=== PATIENT | male | born 1955 | race Caucasian/White ===

== ENCOUNTER 2020-03-23 12:09 | Emergency (ER) | payer OTHER ==
[~2020-03-23 12:09] MED LIST: ALL DAY ALLERGY10 M2 PO; ASPIR 8181 MG PO; BETAMETHASONE D50 G1 TP; CEFUROXIME500 MG PO; CLEOCIN HCL300 MG PO; FLOMAX 0.4 MG0.4 MG PO; FLONASE 0.05% N16 GM; LOPRESSOR 25 MG25 MG PO; SINGULAIR10 MG PO; SYMBICORT 160-1 INHA INH; ULTRAM50 MG PO; ZESTRIL2.5 MG PO
[2020-03-23 13:46] LABS: HEMOGLOBIN 15.8 gm/dl (14.0-17.5); RED BLOOD COUNT 5.27 M/UL (4.20-5.50); WHITE BLOOD COUNT 8.4 K/UL (4.5-11.0)
[2020-03-23] MEDS ORDERED: PREDNISONE10 MG PO (17:43)
== END 2020-03-23 18:00 | disposition home or self-care (01) ==
LOC: ER1 12:09
PROVIDERS: Emergency Medicine
DX: D86.9 Sarcoidosis, unspecified (principal); K62.5 Hemorrhage of anus and rectum; R30.0 Dysuria; Z88.2 Allergy status to sulfonamides; Z88.1 Allergy status to other antibiotic agents; Z88.8 Allergy status to other drugs, medicaments and biological substances; Z88.5 Allergy status to narcotic agent
CPT/HCPCS: 80053; 85025; 85610; 86850; 86900; 86901; 93005; 94664; 99283; Q9965; Q9967

== ENCOUNTER → 2020-05-02 | Outpatient (CLI) | payer OTHER ==
[~2020-05-02] MED LIST changes: +DOXYCYCLINE HY100 M2 PO; +FUROSEMIDE20 MG PO; +MACROBID 100 M100 M1 PO; +OMEPRAZOLE20 MG PO; +PREDNISONE10 MG PO; +TRELEGY ELLIPT1 EACH INH; +VITAMIN D325 MCG PO
[2020-05-02 07:38] LABS: HEMOGLOBIN 15.1 gm/dl (14.0-17.5); RED BLOOD COUNT 5.22 M/UL (4.20-5.50)
== END ==
LOC: LAB 07:08
PROVIDERS: Family Medicine
DX: I50.22 Chronic systolic (congestive) heart failure (principal); J44.9 Chronic obstructive pulmonary disease, unspecified; J98.4 Other disorders of lung
CPT/HCPCS: 36415; 71046; 80053; 80061; 85027

== ENCOUNTER → 2020-07-17 | Outpatient (CLI) | payer OTHER ==
[~2020-07-17] MED LIST changes: +LEVOFLOXACIN250 MG PO; +LEVOFLOXACIN500 MG PO; +PREDNISONE 10 M10 MG GT
== END ==
LOC: LAB 14:55
PROVIDERS: Family Medicine
DX: R94.4 Abnormal results of kidney function studies (principal)
CPT/HCPCS: 36415; 80048

== ENCOUNTER → 2020-07-19 | Outpatient (CLI) | payer OTHER | LOC: KOH-I 10:47 | DX: J43.9 Emphysema, unspecified (principal); R04.9 Hemorrhage from respiratory passages, unspecified; D86.9 Sarcoidosis, unspecified; R91.8 Other nonspecific abnormal finding of lung field; R59.0 Localized enlarged lymph nodes | CPT/HCPCS: 71250 ==

== ENCOUNTER → 2020-07-25 | Outpatient (CLI) | payer OTHER | LOC: HEART 5 08:42 | DX: R06.02 Shortness of breath (principal) | CPT/HCPCS: 94060; 94729 ==

== ENCOUNTER 2020-09-01 11:40 | Emergency (ER) | payer OTHER ==
[~2020-09-01 11:40] MED LIST changes: -DOXYCYCLINE HY100 M2 PO; -FUROSEMIDE20 MG PO; -LEVOFLOXACIN250 MG PO; -LEVOFLOXACIN500 MG PO; -MACROBID 100 M100 M1 PO; -OMEPRAZOLE20 MG PO; -PREDNISONE 10 M10 MG GT; -TRELEGY ELLIPT1 EACH INH; -VITAMIN D325 MCG PO
[2020-09-01 13:08] LABS: HEMOGLOBIN 15.8 gm/dl (14.0-17.5); RED BLOOD COUNT 5.2 M/UL (4.20-5.50); WHITE BLOOD COUNT 11.9 K/UL (4.5-11.0)
[2020-09-01 13:58] LABS: BUN/CREATININE RATIO 17 (0-10)
[2020-09-01] MEDS ORDERED: MACROBID 100 M100 M1 PO (16:31)
[2020-09-01] MEDS ORDERED: DOXYCYCLINE HY100 M2 PO (16:31)
== END 2020-09-01 16:50 | disposition home or self-care (01) ==
LOC: ER1 11:40
PROVIDERS: Physician Assistant
DX: J18.9 Pneumonia, unspecified organism (principal); D86.9 Sarcoidosis, unspecified; N39.0 Urinary tract infection, site not specified; I42.9 Cardiomyopathy, unspecified; I50.9 Heart failure, unspecified; N18.9 Chronic kidney disease, unspecified; Z79.899 Other long term (current) drug therapy; Z88.1 Allergy status to other antibiotic agents; Z88.2 Allergy status to sulfonamides; Z86.73 Personal history of transient ischemic attack (TIA), and cerebral infarction without residual deficits; Z20.822 Contact with and (suspected) exposure to COVID-19
CPT/HCPCS: 0240U; 36600; 71045; 80053; 81001; 82550; 82553; 82803; 83874; 83880; 84484; 85025; 93005; 94644; 99284

== ENCOUNTER 2020-10-11 17:25 | Observation (INO) | payer OTHER ==
[~2020-10-11] VITALS: Ht 182.9 cm; Wt 90.7 kg
[~2020-10-11 17:25] MED LIST changes: +DOXYCYCLINE HY100 M2 PO; +MACROBID 100 M100 M1 PO
[2020-10-11 19:09] LABS: HEMOGLOBIN 16.5 gm/dl (14.0-17.5); RED BLOOD COUNT 5.39 M/UL (4.20-5.50); WHITE BLOOD COUNT 9.1 K/UL (4.5-11.0)
[2020-10-12 04:34] LABS: WHITE BLOOD COUNT 7.7 K/UL (4.5-11.0)
[2020-10-12 04:35] LABS: HEMOGLOBIN 14.5 gm/dl (14.0-17.5); RED BLOOD COUNT 4.82 M/UL (4.20-5.50)
[2020-10-12] MEDS ORDERED: FUROSEMIDE20 MG PO (09:25)
[2020-10-12] MEDS ORDERED: TRELEGY ELLIPT1 EACH INH (09:25)
[2020-10-12] MEDS ORDERED: OMEPRAZOLE20 MG PO (09:26)
[2020-10-12] MEDS ORDERED: VITAMIN D325 MCG PO (09:26)
[2020-10-13 04:45] LABS: HEMOGLOBIN 14.7 gm/dl (14.0-17.5); RED BLOOD COUNT 4.88 M/UL (4.20-5.50); WHITE BLOOD COUNT 6.8 K/UL (4.5-11.0)
[2020-10-14 06:41] LABS: HEMOGLOBIN 14.7 gm/dl (14.0-17.5); RED BLOOD COUNT 4.89 M/UL (4.20-5.50)
[2020-10-14 06:45] LABS: WHITE BLOOD COUNT 14.2 K/UL (4.5-11.0)
[2020-10-14] MEDS ORDERED: LEVOFLOXACIN500 MG PO (14:19)
[2020-10-14] MEDS ORDERED: PREDNISONE 10 M10 MG GT (14:19)
[2020-10-14] MEDS ORDERED: LEVOFLOXACIN250 MG PO (14:22)
[2020-10-16 19:11] LABS: ORGANISM ID Not indicated. (.); SPECIMEN SOURCE Urine (.); STREPTOCOCCUS PNEUMONIAE AG Negative (Negative)
== END 2020-10-14 15:18 | disposition home or self-care (01) ==
LOC: ER1 17:25 → CDU 21:02 → MED SURG 4 21:02
PROVIDERS: Emergency Medicine; Internal Medicine; ADMIT Internal Medicine
DX: D86.85 Sarcoid myocarditis (principal); J84.10 Pulmonary fibrosis, unspecified; J96.10 Chronic respiratory failure, unspecified whether with hypoxia or hypercapnia; J18.9 Pneumonia, unspecified organism; J43.9 Emphysema, unspecified; N17.9 Acute kidney failure, unspecified; N18.30 Chronic kidney disease, stage 3 unspecified; N40.0 Benign prostatic hyperplasia without lower urinary tract symptoms; Z95.810 Presence of automatic (implantable) cardiac defibrillator; Z99.81 Dependence on supplemental oxygen; Z79.82 Long term (current) use of aspirin; Z79.899 Other long term (current) drug therapy; Z20.822 Contact with and (suspected) exposure to COVID-19
CPT/HCPCS: 36415; 71045; 80048; 80053; 81001; 82550; 82553; 83605; 83690; 83735; 83874; 83880; 84100; 84484; 85025; 85730; 87040; 87070; 87205; 87278; 87899; 92610; 93005; 96372; 96374; 96375; 96376; 99285; G0378; J0456; J0696; J1650; J2543; J2930; J7030; J7050; U0002

== ENCOUNTER 2021-10-09 17:35 | Emergency (ER) | payer OTHER ==
[~2021-10-09 17:35] MED LIST changes: +FUROSEMIDE20 MG PO; +LEVOFLOXACIN250 MG PO; +LEVOFLOXACIN500 MG PO; +OMEPRAZOLE20 MG PO; +PREDNISONE 10 M10 MG GT; +TRELEGY ELLIPT1 EACH INH; +VITAMIN D325 MCG PO
[2021-10-09 18:35] LABS: RED BLOOD COUNT 4.87 M/UL (4.20-5.50); WHITE BLOOD COUNT 7.5 K/UL (4.5-11.0)
[2021-10-09 19:34] LABS: BUN/CREATININE RATIO 13 (0-10)
[2021-10-09] MEDS ORDERED: PREDNISONE 20 M20 MG PO (22:04)
[2021-10-09] MEDS ORDERED: MORGIDOX100 MG PO (22:04)
== END 2021-10-09 22:25 | disposition home or self-care (01) ==
LOC: ER1 17:35
PROVIDERS: Physician Assistant
DX: J44.0 Chronic obstructive pulmonary disease with (acute) lower respiratory infection (principal); J20.9 Acute bronchitis, unspecified; J44.1 Chronic obstructive pulmonary disease with (acute) exacerbation; J96.12 Chronic respiratory failure with hypercapnia; J96.11 Chronic respiratory failure with hypoxia; Z20.822 Contact with and (suspected) exposure to COVID-19
CPT/HCPCS: 0240U; 36600; 71045; 80053; 81001; 82550; 82553; 82803; 83605; 84484; 85025; 87040; 87086; 93005; 99285